=== PATIENT | male | born 1935 | race Caucasian/White ===

== ENCOUNTER → 2016-08-31 | Outpatient (CLI) | payer MEDICARE ==
--- NOTE | 2016-08-31 12:11 | FL ---
Modified barium swallow. HISTORY: Dysphagia. Modified barium swallow was performed with the department of speech pathology. The patient was prese nted with various consistencies of barium. There is no evidence for aspiration or penetration. Full report is to follow from the department of speech pathology. Impression: Normal study.
== END | disposition home or self-care (01) ==
LOC: RADFLMAIN 10:45
PROVIDERS: ATTEND Internal Medicine
DX: R13.19 Other dysphagia (principal)
CPT/HCPCS: 74230

== ENCOUNTER → 2016-09-06 | Outpatient (CLI) | payer MEDICARE ==
--- NOTE | 2016-09-06 11:39 | CT ---
EXAMINATION TYPE: CT chest wo con DATE OF EXAM: 09/06/2016 COMPARISON: November 13, 2012 HISTORY: Patient complains of difficulty breathing/COPD. Abnormal CXR at DrKimberly's office. CT DLP: 534.[address] of the chest was performed with lung and mediastinal window settings submitted. The la ck of contrast limits evaluation of the vascular, mediastinal and parenchymal structures including th e upper abdomen. 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 Stable rounded ate lectasis left lower lobe. No suspicious nodule. No evidence for pneumonia. MEDIASTINUM/JOSE: Thoracic aorta is of normal caliber with limited evaluation given lack of contrast . The heart is not enlarged. No evidence for mediastinal mass. No lymph nodes greater than 1cm. UPPER ABDOMEN: No significant abnormality is seen. OTHER: No significant other abnormality. IMPRESSION: 1. Stable asbestos related pleural disease.
--- NOTE | 2016-09-06 13:28 | ECHOF ---
Referral Reason:I48.2 chronic atrial fibrillation MEASUREMENTS -------- HEIGHT: 177.8 cm WEIGHT: 105.2 kg BP: 133/86 RVIDd: 3.3 cm (< 3.3) IVSd: 1.3 cm (0.6 - 1.1) LVIDd: 4.7 cm (3.9 - 5.3) LVPWd: 1.3 cm (0.6 - 1.1) IVSs: 1.7 cm LVIDs: 3.6 cm LVPWs: 2.0 cm LA Diam: 4.0 cm (2.7 - 3.8) LAESV Index (A-L): 36.72 ml/m Ao Diam: 3.8 cm (2.0 - 3.7) AV Cusp: 1.8 cm (1.5 - 2.6) MV EXCURSION: 19.913 mm (> 18.000) MV EF SLOPE: 103 mm/s (70 - 150) EPSS: 0.8 cm RAP: 5.00 mmHg RVSP: 34.32 mmHg FINDINGS -------- Atrial fibrillation. This was a technically difficult study with suboptimal apical views. The left ventricular size is normal. There is mild concentric left ventricular hypertrophy. Overall left ventricular systolic function is mildly impaired with, an EF between 45 - 50 %. The right ventricle is normal in size and function. LA is moderately dilated 34-39 ml/m2 The right atrium is normal in size. 1.5mg of Definity was utilized for enhancement of images There is mild to moderate aortic valve sclerosis. The mitral valve leaflets are mildly thickened. Mild mitral annular calcification present. [id number] mitral regurgitation is present. Mild tricuspid regurgitation present. There is borderline pulmonary hypertension. Trace/mild (physiologic) pulmonic regurgitation. The aortic root is dilated measuring 3.8cm. Normal inferior vena cava with normal inspiratory collapse consistent with estimated right atrial pressure of 5 mmHg. There is no pericardial effusion. CONCLUSIONS -------- 1. Atrial fibrillation. 2. There is mild to moderate aortic valve sclerosis. 3. The mitral valve leaflets are mildly thickened. 4. Mild mitral annular calcification present. 5. Rnvo-kf-snspgxfe mitral regurgitation is present. 6. Mild tricuspid regurgitation present. 7. There is borderline pulmonary hypertension. 8. Trace/mild (physiologic) pulmonic regurgitation. 9. The aortic root is dilated measuring 3.8cm. 10. Normal inferior vena cava with normal inspiratory collapse consistent with estimated right atrial pressure of 5 mmHg. 11. There is no pericardial effusion. 12. This was a technically difficult study with suboptimal apical views. 13. The left ventricular size is normal. 14. There is mild concentric left ventricular hypertrophy. 15. Overall left ventricular systolic function is mildly impaired with, an EF between 45 - 50 %. 16. The right ventricle is normal in size and function. 17. LA is moderately dilated 34-39 ml/m2 18. The right atrium is normal in size. 19. 1.5mg of Definity was utilized for enhancement of images SPANISH INTERPRETER/TRANSLATOR: Amparo Burton RDCS
== END ==
LOC: RADCTMAIN 10:52
PROVIDERS: ATTEND Internal Medicine
DX: J94.9 Pleural condition, unspecified (principal); I08.3 Combined rheumatic disorders of mitral, aortic and tricuspid valves; I37.1 Nonrheumatic pulmonary valve insufficiency; I48.2 Chronic atrial fibrillation; R13.19 Other dysphagia; I10 Essential (primary) hypertension; R93.8 Abnormal findings on diagnostic imaging of other specified body structures
CPT/HCPCS: 93225; 93226; 71250; C8929; Q9957; 93306

== ENCOUNTER → 2016-11-13 | Outpatient (CLI) | payer MEDICARE ==
[2016-11-13 11:17] LABS: CH 31.2; CHCM 31.2; HCT 49.4 % (39.0-53.0); HDW 2.32; HGB 15.4 gm/dL (13.0-17.5); MCH 31.3 pg (25.0-35.0); MCHC 31.2 g/dL (31.0-37.0); MCV 100.4 fL (80.0-100.0); Mean Platelet Volume 7.5; RBC 4.92 m/uL (4.30-5.90); RDW 12.5 % (11.5-15.5); WBC 5.5 k/uL (3.8-10.6)
[2016-11-13 11:41] LABS: Anion Gap 11 mmol/L; Blood Urea Nitrogen 20 mg/dL (9-20); Carbon Dioxide 28 mmol/L (22-30); Chloride 104 mmol/L (98-107); Non-African American GFR(MDRD) >60 (>60 ml/min/1.73 sqM); Potassium 5.4 mmol/L (3.5-5.1); Sodium 143 mmol/L (137-145)
== END | disposition home or self-care (01) ==
LOC: LABPAT 10:39
PROVIDERS: ATTEND Internal Medicine Interventional Cardiology
DX: Z01.812 Encounter for preprocedural laboratory examination (principal); R94.30 Abnormal result of cardiovascular function study, unspecified
CPT/HCPCS: 36415; 80051; 82565; 84520; 85027

== ENCOUNTER 2016-11-19 10:47 | Day surgery (SDC) | payer MEDICARE ==
[2016-11-14 10:18] VITALS: BMI 33.0
[~2016-11-19 10:47] MED LIST: ALPRAZolam 0.25 MG TAB PO PRN; ALPRAZolam 0.5 MG TAB PO PRN; ASPIRIN 325 MG TAB PO STA; ATORVASTATIN 80 MG TAB PO STA; NITROGLYCERIN SL TABS 0.4 MG TAB SUBLINGUAL PRN; SODIUM CHLORIDE 0.9% 1,000 ML in EMPTY BAG 1 BAG IV ONE
[2016-11-19] MEDS ORDERED: VERAPAMIL 2.5 MG/ML 2 ML AMP ONE (11:17)
[2016-11-19] MEDS ORDERED: MIDAZOLAM 2 MG/2 ML VIAL ONE (11:18)
[2016-11-19] MEDS ORDERED: HEPARIN SODIUM 1,000 UN/ML (10ML VL) ONE (11:18)
[2016-11-19] MEDS ORDERED: LIDOCAINE 2% INJ 20 MG/ML (20 ML MDV) ONE (11:18)
[2016-11-19] MEDS ORDERED: SODIUM CHLORIDE 0.9% 100 ML IV ONE (11:25)
[2016-11-19 11:35] VITALS: TEMP 97.7
[2016-11-19] MEDS ORDERED: MIDAZOLAM 2 MG/2 ML VIAL IV ONE (11:59)
[2016-11-19] MEDS ORDERED: LIDOCAINE 2% INJ 20 MG/ML SQ ONE ×2 (12:00→12:01)
[2016-11-19] MEDS ORDERED: HEPARIN SODIUM 1,000 UN/ML (10ML VL) IV ONE (12:02)
[2016-11-19] MEDS ORDERED: VERAPAMIL SYRINGE (5 MG/10 ML) INTRAARTER ONE ×2 (12:03→12:23)
[2016-11-19] MEDS ORDERED: IOHEXOL 350 MG/ML 125ML BOTTLE INJ ONE (12:22)
[2016-11-19] MEDS ORDERED: SODIUM CHLORIDE 0.9% 1,000 ML IV ONE (12:24)
[2016-11-19] MEDS ORDERED: RX INFO: IV CONTRAST WAS GIVEN 1 EACH MISC MISCELLANE PRN (12:29)
[2016-11-19] MEDS ORDERED: SODIUM CHLORIDE 0.9% 1,000 ML IV SCH (12:30)
--- NOTE | 2016-11-19 13:06 | CC ---
CARDIAC CATHETERIZATION REPORT DATE OF SERVICE: 11/19/2016 PERFORMING PHYSICIAN: Waqar Velez MD, [employer]. PROCEDURE PERFORMED: Selective right and left coronary angiogram. INDICATION: This is a pleasant 81-year-old gentleman who was experiencing exertional dyspnea and underwent myocardial perfusion imaging stress test which showed lateral ischemia. He was brought today to undergo a heart catheterization. APPROACH: Right radial artery. COMPLICATION: None. LEVEL OF SEDATION: Moderate with a sedation length of 25 minutes. PROCEDURE DESCRIPTION: After obtaining an informed consent, the patient was brought to the Cardiac [facility]. The right radial artery was cannulated using micropuncture technique, the micropuncture wire passed easily, then I placed a 6-English sheath in the right radial artery. Subsequently, I did selective right and left coronary angiogram using JR4 and JL3.5 catheters. The procedure was completed without any complication. SELECTIVE CORONARY ANGIOGRAM: 1. The right coronary artery is a large caliber vessel and it is a dominant vessel. The proximal RCA appears to be angiographically normal. The mid RCA has eccentric lesion, seems to be in the range of 50%. The RCA distally appeared to have mild disease only and bifurcates into PDA and PLV branches. The PLV branch appears to be angiographically normal and the PDA branch appeared to have a lesion in the range of 60%. 2. The left main is a short left main, but angiographically normal. It bifurcates into the left circumflex and left anterior descending artery. 3. The left circumflex is a large caliber vessel. It is a nondominant vessel. The proximal left circumflex has mild disease only. The mid left circumflex is normal and gives rise into a large OM branch which has a disease in the midportion, seems to be in the range of 50% to 60% by the bifurcation of medium-sized subbranches. The left circumflex continues after that as a medium caliber vessel in the AV groove. 4. The left anterior descending artery: The proximal left anterior descending artery. appeared to have mild disease only. The it gives rise into a large diagonal branch which has severe disease in the ostium. The mid left anterior descending artery has a lesion, appeared to be in the range of 50% to 60% as well. The left anterior descending artery distally appeared to have mild disease only. CONCLUSION: 1. Intermediate triple-vessel coronary artery disease. 2. Postprocedure management. I will treat the patient medically at this point of time. If he continues to be symptomatic, I might consider doing a PCI of the PDA branch of the RCA. ASCENCION / YOSI: [id number] /
[2016-11-19 13:16] VITALS: RESP 18
[2016-11-19 13:42] VITALS: BP 130/75; PULSE 84
== END 2016-11-19 17:30 | disposition home or self-care (01) ==
LOC: CATHCVL 10:47
PROVIDERS: ATTEND Internal Medicine Interventional Cardiology
DX: I25.110 Atherosclerotic heart disease of native coronary artery with unstable angina pectoris (principal); I10 Essential (primary) hypertension; Z87.891 Personal history of nicotine dependence; I48.2 Chronic atrial fibrillation; E78.00 Pure hypercholesterolemia, unspecified; E78.5 Hyperlipidemia, unspecified; Z79.02 Long term (current) use of antithrombotics/antiplatelets; Z79.899 Other long term (current) drug therapy
CPT/HCPCS: 93454; 84132; 99152; 99153; C1769 ×2; C1894; J2001; J2250; J1644; Q9967

== ENCOUNTER 2017-09-17 08:11 | Day surgery (SDC) | payer MEDICARE ==
[2017-09-12 15:30] VITALS: BMI 32.3
[~2017-09-17 08:11] MED LIST changes: -ALPRAZolam 0.25 MG TAB PO PRN; -ALPRAZolam 0.5 MG TAB PO PRN; -ASPIRIN 325 MG TAB PO STA; -ATORVASTATIN 80 MG TAB PO STA; +LACTATED RINGERS 1,000 ML IV SCH; -NITROGLYCERIN SL TABS 0.4 MG TAB SUBLINGUAL PRN; -SODIUM CHLORIDE 0.9% 1,000 ML in EMPTY BAG 1 BAG IV ONE
[2017-09-17] MEDS ORDERED: LIDOCAINE 1% 20 ML VIAL (10MG/ML) FOR IV START INTRADERMA ONE (08:37)
[2017-09-17 08:40] VITALS: RESP 16; TEMP 98
[2017-09-17] MEDS ORDERED: LIDOCAINE 1% INJ 10MG/ML (20 ML MDV) ONE (09:00)
[2017-09-17] MEDS ORDERED: PROPOFOL 10 MG/ML 20 ML VIAL IV ONE (09:00)
--- NOTE | 2017-09-17 10:08 | P.PCN ---
Date of Procedure: 09/17/17 Preoperative Diagnosis: History of polyps Postoperative Diagnosis: Cecal polyp 5 ascending colon polyp 1 diverticulosis hemorrhoids Procedure(s) Performed: Colonoscopy with polypectomy 6 Anesthesia: MAC Surgeon: Adeel Vo Condition: stable Disposition: same day Description of Procedure: Patient was brought into the Endo suite placed in the left lateral decubitus position underwent sedation per department of anesthesia timeout was performed correct patient correct procedure correct site was verified rectal exam was performed external and internal hemorrhoids were noted no other abnormalities were noted the scope was passed from the rectum to the cecum with ease there were multiple cecal polyps noted 5 there were small pedunculated polyps these were snared with hot snare biopsy and sent to pathology. There was one small sessile ascending colon polyp this was removed with hot forceps biopsy. Hemostasis was noted. The scope was then slowly withdrawn through the remainder of the colon being sure to visualize all maldonado on the way out. No other abnormalities were noted other than sigmoid diverticulosis and internal and external hemorrhoids. Scope was retroflexed in the rectum and no other abnormalities are noted patient tolerated procedure well no apparent complications he'll need a repeat colonoscopy in one year for 3 years and will follow-up in my office with pathology
[2017-09-17 10:20] VITALS: BP 107/68; PULSE 76
== END 2017-09-17 10:40 | disposition home or self-care (01) ==
LOC: ORWHC2ENDO 08:11
PROVIDERS: ATTEND Student in an Organized Health Care Education/Training Program
DX: D12.2 Benign neoplasm of ascending colon (principal); D12.0 Benign neoplasm of cecum; K63.5 Polyp of colon; K57.30 Diverticulosis of large intestine without perforation or abscess without bleeding; Z80.0 Family history of malignant neoplasm of digestive organs; Z86.010 Personal history of colon polyps; K64.8 Other hemorrhoids; K64.4 Residual hemorrhoidal skin tags; I10 Essential (primary) hypertension; E78.00 Pure hypercholesterolemia, unspecified; N52.9 Male erectile dysfunction, unspecified; Z86.718 Personal history of other venous thrombosis and embolism; N40.0 Benign prostatic hyperplasia without lower urinary tract symptoms; M19.90 Unspecified osteoarthritis, unspecified site; Z87.891 Personal history of nicotine dependence; I48.91 Unspecified atrial fibrillation; J44.9 Chronic obstructive pulmonary disease, unspecified; Z79.02 Long term (current) use of antithrombotics/antiplatelets; Z79.899 Other long term (current) drug therapy
CPT/HCPCS: 88305; 45384; 45385; J2001; J2704

== ENCOUNTER → 2022-05-16 | Outpatient (CLI) | payer MEDICARE ==
--- NOTE | 2022-05-16 12:42 | XR ---
EXAMINATION TYPE: XR foot complete LT DATE OF EXAM: 05/16/2022 COMPARISON: NONE HISTORY: Pain and swelling first digit TECHNIQUE: Three views are submitted. FINDINGS: There is diffuse soft tissue edema involving the first digit. There is a soft tissue calcification in the region of the first metatarsal. Severe hypertrophic arthropathy first MTP joint. Vascular calcif ications are seen and there is arthropathy of all DIP joints. There is subtle demineralization of the tuft of the distal phalanx first digit. Extensive soft tissue calcification along the region of the calcaneus posterior to the tibia and fibu la. IMPRESSION: 1. Findings are suggestive of cellulitis with possible early osteomyelitis tuft distal phalanx first digit. 2. Severe hypertrophic arthropathy first MTP can be associated with gout or osteoarthritis 3. Large area of calcification involving the subcutaneous posterior soft tissues of distal lower extr emity extending to the region of the ankle. Differential diagnosis would include dystrophic calcifica tions, chronic infectious etiology, tumoral calcinosis and can occasionally be associated with other conditions including polymyositis.
== END | disposition home or self-care (01) ==
LOC: RADXRMAIN 12:03
PROVIDERS: ATTEND Internal Medicine
DX: M10.9 Gout, unspecified (principal); M89.9 Disorder of bone, unspecified

== ENCOUNTER → 2022-06-11 | Outpatient (CLI) | payer MEDICARE | END | disposition home or self-care (01) | LOC: RADUSWWP 14:17 | PROVIDERS: ATTEND Podiatrist | DX: Z53.9 Procedure and treatment not carried out, unspecified reason (principal) | CPT/HCPCS: 93922 ==

== ENCOUNTER → 2022-10-02 | Outpatient (CLI) | payer MEDICARE ==
[2022-10-02 20:31] LABS: HCT 43.9 % (39.6-50.0); HGB 13.9 d/dL (13.0-17.0); MCH 31.4 pg (27.0-32.0); MCHC 31.7 d/dL (32.0-37.0); MCV 99.1 FL (80.0-97.0); NRBC Per 100 WBC 0 X 10*3/uL (0.00-0.01); Platelet Count 206 X 10*3/uL (140-440); RBC 4.43 X 10*6/uL (4.40-5.60); RDW 14.8 % (11.5-14.5); WBC 6.82 X 10*3/uL (4.50-10.00)
[2022-10-02 21:03] LABS: Blood Urea Nitrogen 27.3 mg/dL (9.0-27.0); Carbon Dioxide 29.3 mmol/L (21.6-31.8); Chloride 100 mmol/L (96-109); Potassium 4.8 mmol/L (3.5-5.5); Sodium 139 mmol/L (135-145)
== END | disposition home or self-care (01) ==
LOC: LABPAT 14:19
PROVIDERS: ATTEND Internal Medicine Interventional Cardiology
DX: Z01.812 Encounter for preprocedural laboratory examination (principal); I25.10 Atherosclerotic heart disease of native coronary artery without angina pectoris
CPT/HCPCS: 36415; 80051; 82565; 84520; 85027

== ENCOUNTER 2022-10-04 05:43 | Day surgery (SDC) | payer MEDICARE ==
[2022-10-04] MEDS ORDERED: ASPIRIN 325 MG TAB PO STA (05:55)
[2022-10-04] MEDS ORDERED: HEPARIN SODIUM,PORCINE (1 ML) 2,500 UNIT in SODIUM CHLORIDE 0.9% 250 ML IRRIGATION PRN (05:55)
[2022-10-04] MEDS ORDERED: SODIUM CHLORIDE 0.9% 1,000 ML in EMPTY BAG 1 BAG IV SCH (05:55)
[2022-10-04] MEDS ORDERED: NITROGLYCERIN SL TABS 0.4 MG TAB SUBLINGUAL PRN (05:55)
[2022-10-04] MEDS ORDERED: HEPARIN SODIUM,PORCINE 10,000 UNIT in SODIUM CHLORIDE 0.9% 1,000 ML IRRIGATION PRN (05:55)
[2022-10-04] MEDS ORDERED: ATORVASTATIN 80 MG TAB PO STA (05:55)
[2022-10-04] MEDS ORDERED: ALPRAZolam 0.25 MG TAB PO PRN (05:55)
[2022-10-04] MEDS ORDERED: ALPRAZolam 0.5 MG TAB PO PRN (05:55)
[2022-10-04 06:34] VITALS: TEMP 97.7
[2022-10-04] MEDS ORDERED: LIDOCAINE 1% INJ 10MG/ML (20 ML MDV) SQ ONE (07:41)
[2022-10-04] MEDS ORDERED: VERAPAMIL SYRINGE (5 MG/10 ML) INTRAARTER ONE (07:43)
[2022-10-04] MEDS ORDERED: HEPARIN SODIUM 1,000 UN/ML (10ML VL) ONE (07:44)
[2022-10-04] MEDS ORDERED: HEPARIN SODIUM 1,000 UN/ML (10ML VL) IV ONE (07:45)
[2022-10-04] MEDS ORDERED: MIDAZOLAM 2 MG/2 ML VIAL IVP ONE (07:45)
[2022-10-04] MEDS ORDERED: IOPAMIDOL-370 100ML BTL INJ ONE (08:01)
[2022-10-04] MEDS ORDERED: RX INFO: IV CONTRAST WAS GIVEN 1 EACH MISC MISCELLANE PRN (08:06)
--- NOTE | 2022-10-04 08:12 | P.PCN ---
Date of Procedure: 10/04/22 Operative Findings: CARDIAC CATHETERIZATION PERFORMING PHYSICIAN: Waqar Velez MD, RPVI PROCEDURE PERFORMED: 1. Selective right and left coronary angiogram 2. Left heart catheterization 3. iFR of the RCA 4. Ultrasound-guided access of the right radial artery INDICATION: Chest discomfort and shortness of breath and this 87-year-old gentleman who is known to have an intermediate triple-vessel CAD based on heart catheterization in 2018 and also recently underwent a stress test showed an inferior ischemia COMPLICATION: None APPROACH: Right radial artery LEVEL OF SEDATION: Moderate with a sedation length of 23 minutes PROCEDURE DESCRIPTION: After obtaining an informed consent, the patient was brought to cardiac label paster. Local anesthesia was performed using lidocaine subcutaneously. The right radial artery was cannulated using Seldinger technique, the guidewire passed easily, following that we advanced a 5-Zambian sheath dilator assembly, the wire and dilator were removed and sheath was flushed. Following that, 2 mg of verapamil along with 5000 unit heparin were given. Selective right and left coronary angiogram using a 6-Zambian JR4 and JL 3.5 catheters. Following that we did left heart catheterization using 6-Zambian pigtail catheter. After that FFR of the RCA was performed The procedure was completed there was no complication. SELECTIVE CORONARY ANGIOGRAM: The right coronary artery: Large-caliber vessel and a dominant vessel. The mid RCA has intermediate lesion appeared to be in the range of 50%. The ostial PDA branch of the RCA has a tubular lesion appears to be in the range of 50%. Doppler wire confirmed that the lesion to be not flow limiting. Left main: Large-caliber vessel and calcified vessel was mild disease only. Bifurcates into an LCx and LAD The left circumflex: Large caliber vessel and nondominant vessel. The LCx gives rises into a large OM branch which has intermediate lesion appeared to be in the range of 60% by the bifurcation. The left anterior descending artery: Large-caliber vessel was mild diffuse disease only. HEMODYNAMICS: The LVEDP was about 12 mmHg was no significant gradient across aortic valve iFR OF THE RCA: After zeroing the Doppler wire and equalizing between the Doppler wire and guiding catheter which was an AL 0.75 guiding catheter the RCA was wired and the wire was advanced distal to the lesion in the PDA. We did iFR and that came in to be nonischemic and 0.91. The procedure was completed was no complication CONCLUSION: 1. Intermediate disease involving the PDA branch of the RCA. iFR was performed and came in to be nonischemic and 0.91 2. Low left-sided filling pressure POSTPROCEDURE MANAGEMENT: Consider medical treatment at this point
[2022-10-04] MEDS ORDERED: SODIUM CHLORIDE 0.9% 1,000 ML IV SCH (08:15)
[2022-10-04 16:13] VITALS: BP 108/56; PULSE 78; RESP 18
== END 2022-10-04 13:05 | disposition home or self-care (01) ==
LOC: CATHCVL 05:43
PROVIDERS: ATTEND Internal Medicine Interventional Cardiology
DX: I25.10 Atherosclerotic heart disease of native coronary artery without angina pectoris (principal); I77.810 Thoracic aortic ectasia; I42.8 Other cardiomyopathies; I38 Endocarditis, valve unspecified; E78.5 Hyperlipidemia, unspecified; Z79.01 Long term (current) use of anticoagulants; Z79.899 Other long term (current) drug therapy
CPT/HCPCS: 93458; 93799; 76937; C1769 ×2; C1894; C1887; J2250; J2001; J1644; Q9967

== ENCOUNTER → 2022-12-28 | Outpatient (CLI) | payer MEDICARE ==
--- NOTE | 2022-12-28 13:49 | XR ---
EXAMINATION TYPE: XR chest 2V DATE OF EXAM: 12/28/2022 COMPARISON: 07/14/2012 TECHNIQUE: PA and lateral views submitted. HISTORY: Asbestos FINDINGS: No consolidation. No pneumothorax.. Heart is enlarged but no overt failure. Osseous structures demons trate hypertrophic and degenerative changes of the spine. Emphysematous changes with bilateral pleura l calcified plaques. Pleural thickening and tiny left pleural effusion stable. Atherosclerotic change aorta. IMPRESSION: 1. No acute process. COPD, cardiomegaly and extensive bilateral pleural plaques compatible with asbes tos related disease.
== END | disposition home or self-care (01) ==
LOC: RADXRMAIN 13:24
PROVIDERS: ATTEND Internal Medicine Geriatric Medicine
DX: J61 Pneumoconiosis due to asbestos and other mineral fibers (principal); J44.9 Chronic obstructive pulmonary disease, unspecified
CPT/HCPCS: 71046